=== PATIENT | female | born 1980 | race Caucasian/White ===

== ENCOUNTER → 2017-04-03 | Day surgery (SDC) | payer OTHER ==
[2017-03-13 15:31] VITALS: Ht 167.6 cm; Wt 85.9 kg
[~2017-04-03] VITALS: Ht 167.6 cm; Wt 85.9 kg
[~2017-04-03] MED LIST: ATROPINE SULFATE 0.1 MG/ML 5ML SYR IV PRN; BUPIVACAINE 0.5 % 5 MG/1 ML PF 10ML VIAL ONE; CEFAZOLIN 2000MG IV PUSH 10 ML IV SCH; EpHEDrine SULFATE INJ 50 MG/ML AMP IV PRN; FENTANYL CITRATE INJ 50 MCG/1 ML 2 ML VIAL IV PRN; FENTANYL CITRATE INJ 50 MCG/1 ML 2 ML VIAL ONE; LACTATED RINGER'S 1000ML 1,000 ML IV SCH; LIDOCAINE HCL 1% 20 ML VIAL ONE; LIDOCAINE HCL 2% 2 ML VIAL (20MG/ML) ONE; LISI-461 PO; MEDR2.5T5 PO; MIDAZOLAM HCL 1 MG/ML 2ML VIAL ONE; ONDA8TAB6 PO; ONDANSETRON INJ 2 MG/ML 2 ML VIAL IV PRN; ONDANSETRON INJ 2 MG/ML 2 ML VIAL ONE; OXYCODONE/ACETAMINOPHEN 5-325 TAB PO PRN; PROPOFOL IV EMULSION 10 MG/ML 20 ML VIAL IV ONE; SERT-234 PO; SODIUM CHLORIDE 0.9% 1000ML 1,000 ML IV SCH; TRAM-10 PO; VNTHFA/IN INH
--- NOTE | 2017-04-03 06:46 | History & Physical Bridge - [place] ---
H&P Re-Evaluation Bridge Note: I have examined the patient, reviewed the History & Physical and in the interval since the performance of the History & Physical I have noted the following changes of clinical significance: No changes noted
--- NOTE | 2017-04-03 07:13 | [facility] Post Operative Brief Note ---
Immediate Operative Summary Operative Date Apr 03, 2017. Pre-Operative Diagnosis Right Carpal Tunnel Syndrome Post-Operative Diagnosis Same Procedure(s) Performed Right Carpal Tunnel Release Surgeon [facility]. [facility] Dem[facility] Surgeon(s) Lala Gonzalez PA-C Estimated Blood Loss 0 Findings ABOVE Specimens None Anesthesia LOCAL IV SEDATION Complication(s) None Disposition
[2017-04-03 07:14] VITALS: TEMP 36.6
--- NOTE | 2017-04-03 07:18 | Discharge Instructions-SurgCtr ---
Discharge Instructions Date of Service Apr 03, 2017. Visit Reason for Visit: Right Carpal Tunnel Syndrome Discharge Discharge Diagnosis / Problem: SAME ABOVE Discharge Goals Goal(s): Decrease discomfort, Improve function Activity Recommendations Activity Limitations: as noted below Lifting Limitations: until after follow-up appointment Exercise/Sports Limitations: until after follow-up appointment Shower/Bathe: keep incision dry Anesthesia . Post Anesthesia Instructions: If you have had General Anesthesia or IV Sedation: * Do not drive today. * Resume driving when surgeon permits. * Do not make important decisions or sign legal documents today. * Call surgeon for: 1. Temperature elevations greater than 101 degrees F. 2. Uncontrollable pain. 3. Excessive bleeding. 4. Persistent nausea and vomiting. 5. Medication intolerance (nausea, vomiting or rash). * For nausea and vomiting use only clear liquids such as: tea, soda, bouillon until nausea subsides, then gradually increase diet as tolerated. * If you have any concerns or questions, call your surgeon's office. If physician is unavailable and it is an emergency, call 911 or go to the nearest emergency room. . Instructions / Follow-Up Instructions / Follow-Up MEDICATIONS: * Resume previous medications unless instructed otherwise by your surgeon. * Always take pain medication on a full stomach or with food to avoid upset stomach. * Do not drink alcohol or drive while taking narcotics. * Ibuprofen or Tylenol may be taken if narcotic not needed. SPECIAL CARE INSTRUCTIONS: __ None _X_ Keep extremity elevated and iced x 48 hours; apply ice 20-30 minutes 8-10 times/day. May remove at night. __ Sling __24 hrs/day __ Remove at night __ Shoulder Immobilizer __ 24 hrs/day __ Remove at night _X_ Dressing _X_ Maintain until seen in office, may shower with plastic over site __ Remove dressings in 24-48 hours and then may shower __ Cover incisions with band-aids after showering __ Do not remove steri-strips Call physician if chills or temperature rises above 102 degrees or pain unrelieved by prescribed pain medications at . . Diet Recommendations Home Diet: no limitations Procedures Procedures Performed: Right Carpal Tunnel Release Pending Studies Studies pending at discharge: no Medical Emergencies . Who to Call and When: Medical Emergencies: If at any time you feel your situation is an emergency, please call 911 immediately. . Non-Emergent Contact Non-Emergency issues call your: Primary Care Provider . . "Provider Documentation" section prepared by Colton Gonzalez. .
--- NOTE | 2017-04-03 07:24 | OPERATIVE REPORT ---
DATE OF OPERATION: 04/03/2017 PREOPERATIVE DIAGNOSIS: Right carpal tunnel syndrome. POSTOPERATIVE DIAGNOSIS: Same. PROCEDURE: Decompression median nerve release transverse carpal ligament, right wrist. SURGEON: Kael Stokes MD. HEARING THERAPIST: Colton Gonzalez PA-C. ANESTHESIOLOGIST: Serge Abad DO. ANESTHESIA: Local with IV sedation. DRAINS: None. COMPLICATIONS: None. CONDITION: The patient tolerated the procedure well and returned to the recovery room in apparent satisfactory condition. INDICATIONS FOR SURGERY: Augusta Rodrigues is a 37-year-old female who has had increasing pain, numbness and tingling in her right hand consistent with carpal tunnel syndrome. We went over treatment options and elected to go ahead and proceed with surgery. Procedure, expected outcomes and side effects were all explained in detail. PROCEDURE: The patient was taken to the OR at which time she was placed supine on the operating table. The right hand was prepped and draped in the usual sterile fashion for this surgery. The anticipated incision site was infiltrated with 1% Xylocaine. A forearm tourniquet was placed on the arm and tourniquet was placed up to 250 mmHg. Incision was made vertically over the transverse carpal tunnel ligament. Dissection was done down until the palmar fascia was identified and divided with a 15-blade. The transverse carpal ligament was identified and also divided with the 15-blade and upbiting scissors. A small portion of the forearm fascia was divided also. Electrocautery was used to control any areas of bleeding. The nerve was freed up from any scar tissue and adequately decompressed. The wound then was copiously irrigated. It was closed then with interrupted 4-0 nylon sutures. Marcaine without Epinephrine was placed in the skin edges. It was closed in a layered fashion. We placed a sterile dressing of Xeroform, 4 x 4, volar splint, and an Neil bandage. DISPOSITION: The patient was returned back to the recovery room in apparent satisfactory condition. I attest to the content of the Intraoperative Record and any orders documented therein. Any exception s are noted below.
[2017-04-03 07:32] VITALS: BP 125/89; PULSE 75; O2SAT 97
--- NOTE | 2017-04-03 07:35 | Anesthesia Progress Nt - [facility] ---
Anesthesia Post Op Note Date & Time Apr 03, 2017 at 07:35 Vital Signs Pain Intensity: 0 Vital Signs Past 12 Hours Date Time Temp Pulse Resp B/P (MAP) Pulse Ox O2 Delivery O2 Flow Rate FiO2 04/03/17 07:32 75 16 125/89 (101) 97 Room Air 04/03/17 07:14 36.6 76 16 127/87 (100) 96 Room Air 04/03/17 06:31 36.6 73 16 141/99 (113) 99 Room Air Notes Mental Status: alert / awake / arousable, participated in evaluation Pt Amnestic to Procedure: Yes Nausea / Vomiting: adequately controlled Pain: adequately controlled Airway Patency, RR, SpO2: stable & adequate BP & HR: stable & adequate Hydration State: stable & adequate Anesthetic Complications: no major complications apparent
== END | disposition home or self-care (01) ==
LOC: X.SURG 06:10
PROVIDERS: ATTEND Orthopaedic Surgery
DX: G56.01 Carpal tunnel syndrome, right upper limb (principal); I10 Essential (primary) hypertension; J45.909 Unspecified asthma, uncomplicated; F41.9 Anxiety disorder, unspecified; Z79.899 Other long term (current) drug therapy

== ENCOUNTER → 2017-04-24 | Outpatient (CLI) | payer OTHER ==
[~2017-04-24] MED LIST changes: -ATROPINE SULFATE 0.1 MG/ML 5ML SYR IV PRN; -BUPIVACAINE 0.5 % 5 MG/1 ML PF 10ML VIAL ONE; -CEFAZOLIN 2000MG IV PUSH 10 ML IV SCH; -EpHEDrine SULFATE INJ 50 MG/ML AMP IV PRN; -FENTANYL CITRATE INJ 50 MCG/1 ML 2 ML VIAL IV PRN; -FENTANYL CITRATE INJ 50 MCG/1 ML 2 ML VIAL ONE; -LACTATED RINGER'S 1000ML 1,000 ML IV SCH; -LIDOCAINE HCL 1% 20 ML VIAL ONE; -LIDOCAINE HCL 2% 2 ML VIAL (20MG/ML) ONE; -MIDAZOLAM HCL 1 MG/ML 2ML VIAL ONE; -ONDANSETRON INJ 2 MG/ML 2 ML VIAL IV PRN; -ONDANSETRON INJ 2 MG/ML 2 ML VIAL ONE; -OXYCODONE/ACETAMINOPHEN 5-325 TAB PO PRN; -PROPOFOL IV EMULSION 10 MG/ML 20 ML VIAL IV ONE; -SODIUM CHLORIDE 0.9% 1000ML 1,000 ML IV SCH
== END | disposition home or self-care (01) ==
LOC: C.PAPS 09:02
PROVIDERS: ATTEND Obstetrics & Gynecology
DX: Z12.4 Encounter for screening for malignant neoplasm of cervix (principal)